=== PATIENT | female | born 1985 | race Caucasian/White ===

== ENCOUNTER 2018-12-06 16:18 | Emergency (ER) | payer MEDICAID ==
[~2018-12-06] VITALS: Ht 157.5 cm; Wt 103.0 kg
[2018-12-06 16:25] VITALS: Ht 157.5 cm; Wt 103.0 kg
[2018-12-06] MEDS ORDERED: ONDANSETRON (ODT) 4 MG TAB ODT STA (17:14)
--- NOTE | 2018-12-06 17:24 | ERD ---
ER Documentation Chief Complaint Chief Complaint rt side abd pain x 3 weeks with nuasea /vomiting , sent by pmd to r/o cyst HPI 33-year-old female presenting with worsening right-sided abdominal pain. She has had the pain intermittently for the past 3 weeks. Last week she went to the ER and was told she had a cyst on her ovary found on CT scan. She was told to follow-up with her primary care doctor. She went to the clinic today for worse demetrius pain as well as associated nausea and vomiting, and was told to go to the ER. She denies any associated fever or chills. Pain and symptoms are not related to eating. No alleviating or exacerbating factors. No vaginal bleeding. LMP was November 16, 2018 ROS All systems reviewed and are negative except as per history of present illness. Medications Home Meds Active Scripts Ondansetron (Ondansetron Odt) 4 Mg Tab.rapdis, 4 MG PO Q6H PRN for NAUSEA AND/OR VOMITING, #10 TAB Prov:TOLU GARCIA MD 12/06/18 Allergies Allergies: Coded Allergies: No Known Allergy (Unverified , 12/06/18) PMhx/Soc History of Surgery: Yes ( x2, bilateral tubal ligation) Hx Alcohol Use: No Hx Substance Use: No Hx Tobacco Use: No FmHx Family History: No diabetes Physical Exam Vitals Vital Signs Date Temp Pulse Resp B/P (MAP) Pulse Ox O2 O2 Flow FiO2 Time Delivery Rate 12/06/18 98.3 86 18 148/95 98 16:25 (112) Physical Exam Const: No acute distress Head: Atraumatic Eyes: Normal Conjunctiva ENT: Normal External Ears, Nose and Mouth. Neck: Full range of motion. No meningismus. Resp: Clear to auscultation bilaterally Cardio: Regular rate and rhythm, no murmurs Abd: Soft, mild to moderate right lower quadrant tenderness to palpation. No McBurney's point tenderness. Negative Monteiro sign. non distended. Normal bowel sounds Skin: No petechiae or rashes Back: No midline or flank tenderness Ext: No cyanosis, or edema Neur: Awake and alert Psych: Normal Mood and Affect Results 24 hrs Laboratory Tests Test 12/06/18 17:25 12/06/18 17:36 Urine Color YELLOW Urine Clarity SLIGHTLY CLOUDY Urine pH 5.0 Urine Specific [place] 1.019 Urine Ketones NEGATIVE mg/dL Urine Nitrite NEGATIVE mg/dL Urine Bilirubin NEGATIVE mg/dL Urine Urobilinogen NEGATIVE mg/dL Urine Leukocyte Esterase 1+ Maria Luisa/ul Urine Microscopic RBC 0 /HPF Urine Microscopic WBC 1 /HPF Urine Squamous Epithelial Cells FEW /HPF Urine Bacteria FEW /HPF Urine Hemoglobin NEGATIVE mg/dL Urine Glucose NEGATIVE mg/dL Urine Total Protein NEGATIVE mg/dl POC Beta HCG, Qualitative NEGATIVE Current Medications Medications Dose Sig/Alexandre Start Time Status Last (Trade) Ordered Route PRN Stop Time Admin Dose Reason Admin 1 tab ONCE ONCE 12/06/18 DC 12/06/18 Acetaminophen PO 17:30 17:23 / 12/06/18 17:31 Hydrocodone Bitart ([place] (5/325)) Ondansetron 8 mg ONCE STAT 12/06/18 DC 12/06/18 HCl (Zofran ODT 17:14 17:22 Odt) 12/06/18 17:16 Procedures/MDM EMERGENT LABS AND DIAGNOSTIC STUDIES: Lab Results above were reviewed and interpreted by me. UA: no evidence of infection Urine negative Radiology Results as interpreted by Radiology below were reviewed by Lon Garcia MD: CT abdomen and pelvis shows no acute abnormalities Ultrasound pelvis shows dominant left ovarian follicle, no other acute abnormalities. Initial Nursing notes reviewed. Previous Medical Records requested via the Electronic Health Record. EMERGENCY DEPARTMENT COURSE / MEDICAL DECISION MAKING: Patient presenting with 3 weeks of intermittent right-sided lower abdominal pain with associated intermittent vomiting. Her vitals are unremarkable and she is afebrile and well-appearing on exam. Patient treated with oral antiemetics and pain medication. Differential includes but is not limited to appendicitis, colitis, cystitis, ureterolithiasis, diverticulitis, abdominal aortic di ssection, bowel obstruction, fecal impaction. Low suspicion for ectopic ovarian torsion, tubo-ovarian abscess, PID. UA and test ordered to evaluate for above and were unremarkable. Pelvic ultrasound and CT abdomen pelvis both done showing no acute abnormalities I would explain her pain. At this point, I do not feel labs are indicated as they would most likely not be helpful. at this moment the etiology of the abdominal pain is unknown. The patients vitals have been noted and are currently afebrile and hemodynamically stable. The workup, physical exam and observation period do not indicate a serious cause to the pain. The patients symptoms have improved while in the ED and the patient remains hemodynamically stable. Patient was able to tolerate PO. The current assessment has been explained to the patient including the fact that the etiology of the pain cannot be ruled out with certainty. Patient was advised that in the event this is early in the process of a more serious condition they may expect their symptoms to worsen and if so to return to the emergency department immediately. Patient was advised to follow up with primary care physician as soon as possible for re-evaluation within the next 1-2 days. All of the patients questions were answered. Patient verbalized understanding of plan and agrees. Advised to return to the ER for reevaluation within 12 hours if symptoms worsen. Patient's blood pressure was elevated (>120/80) but appears stable without evidence of hypertensive emergency or urgency. The patient was counseled about the risks of hypertension and urged to pursue outpatient monitoring and therapy within a week with their primary care physician. Departure Diagnosis: Primary Impression: Abdominal pain Abdominal location: right lower quadrant Qualified Codes: R10.31 - Right lower quadrant pain Condition: Stable EKTOLU KILGORE MD Dec 06, 2018 17:24
[2018-12-06] MEDS ORDERED: HYDROCODONE/APAP (5/325) TAB PO ONE (17:30)
[2018-12-06] MEDS ORDERED: ONDA4TAB14 PO (19:27)
[2018-12-06 19:44] VITALS: BP 127/86; PULSE 76; RESP 18
== END 2018-12-06 19:46 | disposition home or self-care (01) ==
LOC: FTE 16:18
DX: R10.31 Right lower quadrant pain (principal)
CPT/HCPCS: 74176; 76856; 81001; 81025; Z7502; Z7610